=== PATIENT | female | born 1990 | race Caucasian/White ===

== ENCOUNTER 2016-11-23 22:14 | Observation (INO) | payer OTHER ==
[2016-11-24] MEDS ORDERED: Terbutaline 1 MG/ML SDV SUBCUT ONE (00:11)
[2016-11-24] MEDS ORDERED: Terbutaline 1 MG/ML SDV ONE (00:13)
== END 2016-11-24 02:40 | disposition home or self-care (01) ==
LOC: MW.OBCHECK 22:14 → MW.OB 22:20 → MW.OBCHECK 22:41 → MW.OB 22:41
PROVIDERS: ADMIT Obstetrics & Gynecology; ATTEND Obstetrics & Gynecology
DX: Z34.93 Encounter for supervision of normal pregnancy, unspecified, third trimester (principal)
CPT/HCPCS: 59025; 81003; 87081; 96372; G0378; J3105

== ENCOUNTER 2016-12-23 03:53 | Inpatient (IN) | payer OTHER ==
[2016-12-23] MEDS ORDERED: Misoprostol 200 MCG Tab PO PRN (04:30)
[2016-12-23] MEDS ORDERED: Nalbuphine 10 MG/1 ML Vial IVPUSH PRN (04:30)
[2016-12-23] MEDS ORDERED: Sodium Chloride 0.9% 2.5 ML Syringe FLUSH PRN (04:30)
[2016-12-23] MEDS ORDERED: Carboprost Tromethamine 250 MCG/1 ML Amp IM PRN (04:30)
[2016-12-23] MEDS ORDERED: Methylergonovine 0.2 MG/1 ML Amp IM PRN (04:30)
[2016-12-23] MEDS ORDERED: Lactated Ringers 1,000 ML IV SCH (04:30)
[2016-12-23] MEDS ORDERED: Lidocaine 1% 50 ML MDV INJECT PRN (04:30)
[2016-12-23] MEDS ORDERED: Oxytocin/Lactated Ringers 30 UNIT/500 ML BAG IV SCH ×2 (04:30→16:00)
[2016-12-23] MEDS ORDERED: Water For Irrigation,Sterile 1,000 ML Container IRR PRN (04:30)
[2016-12-23] MEDS ORDERED: Sodium Chloride 0.9% 10 ML Syringe FLUSH PRN (04:30)
[2016-12-23] MEDS ORDERED: Butorphanol 1 MG/ML SDV IVPUSH PRN (04:30)
[2016-12-23] MEDS ORDERED: Oxytocin/Lactated Ringers 30 UNIT/500 ML BAG ONE (15:45)
[2016-12-23] MEDS ORDERED: Bisacodyl 10 MG Supp RECTAL PRN (17:53)
[2016-12-23] MEDS ORDERED: Simethicone 80 MG Tab.Chew PO PRN (17:53)
[2016-12-23] MEDS ORDERED: Witch Hazel Medicated Pads 40/Jar TOP PRN (17:53)
[2016-12-23] MEDS ORDERED: Ibuprofen 400 MG Tab PO PRN (17:53)
[2016-12-23] MEDS ORDERED: Docusate Sodium 100 MG Cap PO PRN (17:53)
[2016-12-23] MEDS ORDERED: Acetaminophen 500 MG Tab PO PRN ×2 (17:53)
[2016-12-23] MEDS ORDERED: oxyCODONE 5 MG Tab PO PRN (17:53)
[2016-12-23] MEDS ORDERED: Aluminum Hydroxide/Magnesium Hydroxide/Simethicone Susp 30 ML Cup PO PRN (17:53)
[2016-12-23] MEDS ORDERED: Lanolin 100% Cream 7 GM Tube TOP PRN (17:53)
[2016-12-23] MEDS ORDERED: Benzocaine/Menthol 20%-0.5% Spray 78 GM Cannister TOP PRN (17:53)
[2016-12-23] MEDS: Ibuprofen 800 MG Tab PO PRN (18:07)
[2016-12-24] MEDS: Ibuprofen 800 MG Tab PO PRN ×3 (00:21→16:05)
--- NOTE | 2016-12-24 01:18 | OR ---
SURGEON: Falguni Martins M.D. DATE OF PROCEDURE: 12/23/2016 PREOPERATIVE DIAGNOSES: 1. A 39 and 2-week intrauterine . 2. Active labor. POSTOPERATIVE DIAGNOSES: 1. A 39 and 2-week intrauterine . 2. Active labor. PROCEDURE: Spontaneous vaginal delivery, first-degree midline laceration repaired. ANESTHESIA: Local. ESTIMATED BLOOD LOSS: 300 mL. FINDINGS: Viable male, Apgars 8 at 1 minute and 9 at 5 minutes. Weight 8 pounds 5 ounces. Spontaneous delivery, intact placenta, 3-vessel cord. DISPOSITION: nursery, mom in LDRP, stable. PROCEDURE IN DETAIL: Aneta is a 26-year-old, G2, P1, at 39 and 2 weeks gestational age, who presented on the morning of 12/23/2016, with regular contractions every 6-7 minutes. Cervical dilation of 7, 90% effaced, +1 station. heart tones 130s category 1. With observation, the patient made minimal cervical exchange floor manager the next number of hours. However, she declined any attempts at amniotomy or augmentation. She continued to ambulate, use birthing ball, but still after 3:00 p.m. was found to be 7 cm, 90% effaced, 0 station. heart tones 130s. After many lengthy discussions about options, the patient was also offered to be able to go home as her contractions are now 7-10 minutes apart. Her vital signs are stable. heart tones are 130s, category 1. We recommended that she stay directly in town close to the hospital, but this is an option for her. After consideration, the patient would like to proceed with amniotomy, underwent this successfully. Clear fluid was returned. The patient began austyn much more consistently and frequently thereafter, and began changing her cervix once again. Approximately at 5:30 p.m., she was found to be complete, 100% effaced, at +1 station. Was placed in modified dorsal lithotomy position and prepped draped in the usual aseptic manner. Began pushing efforts, was able to push readily to a +4 station. 's head was delivered while controlling the perineum followed by delivery of anterior shoulder, posterior shoulder, and remainder of the body without difficulty. The 's oropharynx and nares bulb suctioned. Cord was clamped x3. Infant was handed off to his mother with attending nursing staff at her side. Cord arterial, cord venous, cord blood sampling was obtained. Light suprapubic pressure was applied while the placenta was delivered spontaneously intact. Vigorous fundal uterine massage was then applied with 30 units of Pitocin was delivered in 500 mL IV fluid. Upon inspection of cervix outside of the vaginal sidewalls and perineum, there was found to be a first-degree midline laceration. This region was prepped with approximately 10 mL of 1% lidocaine and repaired with 3-0 Caprosyn in the usual fashion. Hemostasis appeared evident. Uterus remained firm. Sponge count and needle counts were correct. The patient remained in LDRP. in nursery thank. EJ / GIANNI /[id number] MTDD
--- NOTE | 2016-12-24 11:05 | PCM.PNPP ---
- General Info Date of Service: 12/24/16 Functional Status: Reports: pain controlled, tolerating diet, ambulating, urinating - Review of Systems General: Denies: Fever, Weakness Pulmonary: Denies: shortness of breath Cardiovascular: Denies: Chest Pain, Palpitations, Lightheadedness Gastrointestinal: Denies: Nausea, Vomiting Genitourinary: Denies: flank pain Psychiatric: Reports: no symptoms - General Info Date of Service: 12/24/16 - Patient Data Vital Signs - most recent: Last Vital Signs Temp 36.4 C 12/24/16 10:11 Pulse 83 12/24/16 10:11 Resp 15 12/24/16 10:11 BP 113/62 12/24/16 10:11 Pulse Ox 97 12/24/16 08:00 Weight - most recent: 76.204 kg I&O - last 24 hours: Intake & Output 12/23/16 12/24/16 12/24/16 22:59 06:59 14:59 Intake Total 2 Balance 2 Lab Results - last 24 hrs: Laboratory Results - last 24 hr 12/23/16 12/24/16 Range/Units 18:47 05:50 Hgb 12.3 (12.0-16.0) g/dL Hct 36.2 (36.0-46.0) % Screen NEGATIVE RhIG Candidate? YES Rhogam Indicated YES, BABY RH POS H Med Orders - Current: Current Medications Acetaminophen (Tylenol Extra Strength) 500 mg PO Q4H PRN PRN Reason: Pain Acetaminophen (Tylenol Extra Strength) 1,000 mg PO Q4H PRN PRN Reason: Pain Last Admin: 12/24/16 03:28 Dose: 1,000 mg Al Hydroxide/Mg Hydroxide (Mag-Al Plus) 30 ml PO Q8H PRN PRN Reason: Heartburn Benzocaine/Menthol (Dermoplast Pain Relief 20%-0.5% Warba) 78 gm TOP ASDIRECTED PRN PRN Reason: Perineal Comfort Measure Last Admin: 12/23/16 18:00 Dose: 1 spray Bisacodyl (Dulcolax) 10 mg RECTAL .ONCE PRN PRN Reason: Constipation Carboprost Tromethamine (Hemabate Ds) 250 mcg IM ASDIRECTED PRN PRN Reason: Post Hemorrhage Docusate Sodium (Colace) 100 mg PO BID PRN PRN Reason: Constipation Emollient Ointment (Lansinoh Hpa) 0 gm TOP ASDIRECTED PRN PRN Reason: Sore Nipples Lactated Ringer's (Ringers, Lactated) 1,000 mls @ 150 mls/hr IV ASDIRECTED GUILHERME Oxytocin/Lactated Ringer's (Pitocin In Lr 30 Units/500 Ml) 30 unit in 500 mls @ 999 mls/hr IV TITRATE GUILHERME Last Admin: 12/23/16 18:32 Dose: 999 mls/hr Ibuprofen (Motrin) 400 mg PO Q4H PRN PRN Reason: Pain Ibuprofen (Motrin) 800 mg PO Q6H PRN PRN Reason: Pain Last Admin: 12/24/16 09:24 Dose: 800 mg Methylergonovine Maleate (Methergine) 0.2 mg IM ASDIRECTED PRN PRN Reason: Post Hemorrhage Oxycodone HCl (Oxycodone) 5 mg PO Q2H PRN PRN Reason: Pain Simethicone (Simethicone) 80 mg PO Q4H PRN PRN Reason: Gas Sodium Chloride (Saline Flush) 2.5 ml FLUSH ASDIRECTED PRN PRN Reason: Keep Vein Open Witch [place] (Tucks) 1 pad TOP ASDIRECTED PRN PRN Reason: comfort care Last Admin: 12/23/16 18:00 Dose: 1 carton Discontinued Medications Butorphanol Tartrate (Stadol) 1 mg IVPUSH Q1H PRN PRN Reason: Pain Oxytocin/Lactated Ringer's (Pitocin In Lr 30 Units/500 Ml) 30 unit in 500 mls @ 999 mls/hr IV TITRATE GUILHERME PRN Reason: 999 MUNITS/MIN Stop: 12/23/16 05:01 Last Admin: 12/23/16 17:29 Dose: 999 munits/min, 999 mls/hr Oxytocin/Lactated Ringer's (Pitocin In Lr 30 Units/500 Ml) Confirm Administered Dose 30 unit in 500 mls @ as directed .ROUTE .[facility] Stop: 12/23/16 15:46 Lidocaine HCl (Xylocaine 1%) 50 ml INJECT .ONCE PRN PRN Reason: Laceration repair Last Admin: 12/23/16 17:35 Dose: 50 ml Misoprostol (Cytotec) 200 mcg PO .ONCE PRN PRN Reason: Post Hemorrhage Nalbuphine HCl (Nubain) 10 mg IVPUSH Q1H PRN PRN Reason: Pain (severe 7-10) Stop: 12/23/16 06:31 Sodium Chloride (Saline Flush) 10 ml FLUSH ASDIRECTED PRN PRN Reason: Keep Vein Open Sterile Water (Sterile Water For Irrigation) 1,000 ml IRR ASDIRECTED PRN PRN Reason: delivery Last Admin: 12/23/16 17:37 Dose: 1,000 ml - Infant Interaction Support Person: , Mother - Recovery Exam Fundal Tone: Firm Fundal Level: 1 Fingerbreadths Below Umbilicus Fundal Placement: Midline Lochia Amount: Scant Lochia Color: Rubra/Red Perineum Description: Intact, Minimal Bruising/Swelling Episiotomy/Laceration: Approximated Bladder Status: Voiding Urinary Elimination: Voided - Exam General: alert, oriented Lungs: Normal respiratory effort Cardiovascular: Regular Rate, Regular Rhythm Abdomen: bowel sounds present, soft. No: CVA tenderness Extremities: no calf tenderness Skin: warm, dry, intact Psy/Mental Status: alert, normal affect - Problem List & Annotations (1) Vaginal delivery SNOMED Code(s): 564414732 Code(s): O80 - ENCOUNTER FOR FULL-TERM UNCOMPLICATED DELIVERY Status: Acute Current Visit: No - Problem List Review Problem List Initiated/Reviewed/Updated: Yes - My Orders Last 24 Hours: My Active Orders 12/23/16 16:00 Oxytocin/Lactated Ringers [Pitocin in LR 30 Units/500 ML] 30 unit in 500 ml IV TITRATE 12/23/16 17:53 Patient Status [ADT] Routine May Shower [RC] ASDIRECTED Up ad Yolette [RC] ASDIRECTED Vital Signs [RC] PER UNIT ROUTINE Acetaminophen [Tylenol Extra Strength] 1,000 mg PO Q4H PRN Acetaminophen [Tylenol Extra Strength] 500 mg PO Q4H PRN Alum Hydrox/Mag Hydrox/Simeth [Mag-Al Plus] 30 ml PO Q8H PRN Benzocaine/Menthol [Dermoplast Pain Relief 20%-0.5% Warba] 78 gm TOP ASDIRECTED PRN Bisacodyl [Dulcolax] 10 mg RECTAL .ONCE PRN Docusate Sodium [Colace] 100 mg PO BID PRN Ibuprofen [Motrin] 400 mg PO Q4H PRN Ibuprofen [Motrin] 800 mg PO Q6H PRN Lanolin [Lansinoh HPA] See Dose Instructions TOP ASDIRECTED PRN Simethicone 80 mg PO Q4H PRN Witch [place] [Tucks] 1 pad TOP ASDIRECTED PRN oxyCODONE 5 mg PO Q2H PRN Assess Lochia [WOMSER] Per Unit Routine Assess Uterine Involution [WOMSER] Per Unit Routine Ice Therapy [OM.PC] Per Unit Routine Perineal Care [OM.PC] Per Unit Routine Peripheral IV Discontinue [OM.PC] Routine Sitz Bath [OM.PC] Per Unit Routine 12/23/16 Dinner Regular Diet [DIET] 12/24/16 11:03 Ready for Discharge [RC] PER UNIT ROUTINE - Assessment Assessment:: PPD 1 status post - Plan Plan:: Patient would like to go home later today. Discharge instructions reviewed. [facility]. Infection and bleeding warnings reviewed.
[2016-12-24 17:33] VITALS: BP 114/76
== END 2016-12-24 19:15 | disposition home or self-care (01) | DRG 775 ==
LOC: MW.OBCHECK 03:53 → MW.OB 03:55 → MW.OBCHECK 04:31 → OBSVTOIN 17:25
PROVIDERS: ADMIT Obstetrics & Gynecology; ATTEND Obstetrics & Gynecology
PROC: 10E0XZZ Delivery of Products of Conception, External Approach (ICD-10-PCS; principal; 2016-12-23)
PROC: 0HQ9XZZ Repair Perineum Skin, External Approach (ICD-10-PCS; 2016-12-23)
PROC: 10907ZC Drainage of Amniotic Fluid, Therapeutic from Products of Conception, Via Natural or Artificial Opening (ICD-10-PCS; 2016-12-23)
DX: O70.0 First degree perineal laceration during delivery (principal); Z3A.39 39 weeks gestation of pregnancy; Z37.0 Single live birth
CPT/HCPCS: 36415; 59025; 85014; 85018; 85027; 85460; 86850; 86900; 86901; A9270-GY; J2790

== ENCOUNTER 2018-02-10 10:59 | Emergency (ER) | payer OTHER ==
[2018-02-10] MEDS ORDERED: Bupivacaine 0.5% 10 ML SDV INJECT ONE (11:07)
[2018-02-10] MEDS ORDERED: Bupivacaine 0.5% 10 ML SDV ONE (11:07)
--- NOTE | 2018-02-10 11:19 | EDM.PDOC ---
ED HPI GENERAL MEDICAL PROBLEM - General Chief Complaint: Laceration Stated Complaint: RIGHT RING FINGER PAIN Time Seen by Provider: 02/10/18 11:05 Source of Information: Reports: Patient History Limitations: Reports: No Limitations - History of Present Illness INITIAL COMMENTS - FREE TEXT/NARRATIVE: History of present illness: []Patient was cutting cucumbers prior to arrival and cut off the tip of her right index finger. Patient has never had a tetanus shot and declines one here. Review of systems: As per history of present illness and below otherwise all systems reviewed and negative. Past medical history: As per history of present illness and as reviewed below otherwise noncontributory. Surgical history: As per history of present illness and as reviewed below otherwise noncontributory. Social history: No reported history of drug or alcohol abuse. Family history: As per history of present illness and as reviewed below otherwise noncontributory. Physical exam: General: Well developed, well nourished in NAD HEENT: Atraumatic, normocephalic, pupils reactive, negative for conjunctival pallor or scleral icterus, mucous membranes moist, throat clear, neck supple, nontender, trachea midline. Lungs: Clear to auscultation, breath sounds equal bilaterally, chest nontender. Heart: S1S2, regular, negative for clicks, rubs, or JVD. Abdomen: Soft, nondistended, nontender. Negative for masses or hepatosplenomegaly. Negative for costovertebral tenderness. Pelvis: Stable nontender. Genitourinary: Deferred. Rectal: Deferred. Extremities: Right index fingertip avulsed approximately 3 millimeters, negative for cords or calf pain. Neurovascular unremarkable. Neuro: Awake, alert, oriented. Cranial nerves II through XII unremarkable. Cerebellum unremarkable. Motor and sensory unremarkable throughout. Exam nonfocal. Diagnostics: []X-ray right index finger no fracture Therapeutics: []Digital block, Surgicel and bulky dressing placed Impression: []Right index finger tip avulsion Plan: []Follow-up with Dr. Wei tramnathan for pain, patient declined prescription pain medicines, ibuprofen 800 every 6 hours as needed for pain ice and elevation Definitive disposition and diagnosis as appropriate pending reevaluation and review of above. Right index finger Pain Score (Numeric/FACES): 0 - Related Data Allergies Allergy/AdvReac Type Severity Reaction Status Date / Time No Known Allergies Allergy Verified 02/10/18 11:10 Home Meds: Home Meds . [No Known Home Meds] 02/10/18 [History] Past Medical History - Past Health History Medical/Surgical History: Denies Medical/Surgical History COOK STATION History: Reports: ED ROS GENERAL - Review of Systems Review Of Systems: ROS reveals no pertinent complaints other than HPI. ED EXAM, SKIN/RASH Exam: See Below (See history of present illness) Course - Orders/Labs/Meds Orders: Active Orders 24 hr Category Date Time Status Fingers Second Digit Rt F6 [CR] Stat Exams 02/10/18 11:14 Taken Meds: Medications Discontinued Medications Generic Name Dose Route Start Last Admin Trade Name Freq PRN Reason Stop Dose Admin Bupivacaine HCl 10 ml 02/10/18 11:07 02/10/18 11:26 Sensorcaine-Mpf 0.5% INJECT 02/10/18 11:08 10 ml ONETIME ONE Administration Bupivacaine HCl Confirm 02/10/18 11:07 02/10/18 11:13 Sensorcaine-Mpf 0.5% Administered 02/10/18 11:08 Not Given Dose 10 ml .ROUTE .STK-MED ONE Lidocaine HCl Confirm 02/10/18 11:07 02/10/18 11:13 Xylocaine-Mpf 1% Administered 02/10/18 11:08 Not Given Dose 5 mls @ as directed .ROUTE .STK-MED ONE Lidocaine HCl 5 ml 02/10/18 11:06 02/10/18 11:26 Xylocaine-Mpf 1% INJECT 02/10/18 11:07 5 ml ONETIME ONE Administration Departure - Departure Time of Disposition: 11:46 Disposition: Home, Self-Care 01 Condition: Good Clinical Impression: Fingertip avulsion Qualifiers: Encounter type: initial encounter Qualified Code(s): S61.209A - Unspecified open wound of unspecified finger without damage to nail, initial encounter - Discharge Information *PRESCRIPTION DRUG MONITORING PROGRAM REVIEWED*: No Referrals: Tasia Wei MD [Physician] - (Next available) Forms: ED Department Discharge Additional Instructions: The following information is given to patients seen in the emergency department who are being discharged to home. This information is to outline your options for follow-up care. We provide all patients seen in our emergency department with a follow-up referral. The need for follow-up, as well as the timing and circumstances, are variable depending upon the specifics of your emergency department visit. If you don't have a primary care physician on staff, we will provide you with a referral. We always advise you to contact your personal physician following an emergency department visit to inform them of the circumstance of the visit and for follow-up with them and/or the need for any referrals to a consulting specialist. The emergency department will also refer you to a specialist when appropriate. This referral assures that you have the opportunity for follow-up care with a specialist. All of these measure are taken in an effort to provide you with optimal care, which includes your follow-up. Under all circumstances we always encourage you to contact your private physician who remains a resource for coordinating your care. When calling for follow-up care, please make the office aware that this follow-up is from your recent emergency room visit. If for any reason you are refused follow-up, please contact the [facility] Department at and asked to speak to the emergency department charge nurse. Ibuprofen 800 every 6 hours as needed for pain Follow-up with Dr. Wei call for next available appointment [facility] Professional Building [address] [place] [address], [address] [place] [address] - My Orders Last 24 Hours: My Active Orders 02/10/18 11:14 Fingers Second Digit Rt F6 [CR] Stat - Assessment/Plan Last 24 Hours: My Active Orders 02/10/18 11:14 Fingers Second Digit Rt F6 [CR] Stat
[2018-02-10 12:10] VITALS: BP 109/67
--- NOTE | 2018-02-12 09:57 | CR ---
EXAM DATE: 02/10/18 PATIENT'S AGE: 27 Patient: ZOË ANDERSON Facility: [place], [place] Site . Site : 1990 Study: XRay Extremity Right 2nd digit [id number]/4/2018 11:37:49 AM Ordering Physician: Jassi Barfield Final Report: INDICATION: Right index finger pain and injury. TECHNIQUE: Three view. FINDINGS: There is a large soft tissue defect and bandage in place along the distal aspect of the right index finger. No acute fracture is seen of the right index finger. IMPRESSION: Soft tissue defect and bandage in place. No fracture is seen of the right index finger. Dictated by Josh Min MD @ 02/10/2018 11:43:25 AM Dictated by: Josh Min MD @ 02/10/2018 11:43:32 (Electronic Signature) Report Signed by Proxy. DEYANIRA
== END 2018-02-10 12:05 | disposition home or self-care (01) ==
LOC: MW.ED 10:59
DX: S61.200A Unspecified open wound of right index finger without damage to nail, initial encounter (principal); W26.0XXA Contact with knife, initial encounter
CPT/HCPCS: 64450; 73140; 99283; J3490

== ENCOUNTER 2018-11-24 11:57 | Emergency (ER) | payer OTHER ==
--- NOTE | 2018-11-24 12:02 | EDM.PDOC ---
ED HPI GENERAL MEDICAL PROBLEM - General Chief Complaint: SALAD CHEF Problem Stated Complaint: AN BLEEDING Time Seen by Provider: 11/24/18 12:02 Source of Information: Reports: Patient - History of Present Illness INITIAL COMMENTS - FREE TEXT/NARRATIVE: HISTORY AND PHYSICAL: History of present illness: [Patient presents at 9 weeks with IUP under OB care with Dr. Martins, she has some bleeding in she has went through 1-2 tampons today this is not uncommon for her during She has 2 previous pregnancies that went to term however she did have bleeding with them as well, I've suggested urged her not to use tampons recommended nothing per vagina at this time ] Review of systems: As per history of present illness and below otherwise all systems reviewed and negative. Past medical history: As per history of present illness and as reviewed below otherwise noncontributory. Surgical history: As per history of present illness and as reviewed below otherwise noncontributory. Social history: No reported history of drug or alcohol abuse. Family history: As per history of present illness and as reviewed below otherwise noncontributory. Physical exam: HEENT: Atraumatic, normocephalic, pupils reactive, negative for conjunctival pallor or scleral icterus, mucous membranes moist, throat clear, neck supple, nontender, trachea midline. Lungs: Clear to auscultation, breath sounds equal bilaterally, chest nontender. Heart: S1S2, regular, negative for clicks, rubs, or JVD. Abdomen: Soft, nondistended, nontender. Negative for masses or hepatosplenomegaly. Negative for costovertebral tenderness. Pelvis: Stable nontender. Genitourinary: Deferred. Rectal: Deferred. Extremities: Atraumatic, negative for cords or calf pain. Neurovascular unremarkable. Neuro: Awake, alert, oriented. Cranial nerves II through XII unremarkable. Cerebellum unremarkable. Motor and sensory unremarkable throughout. Exam nonfocal. Diagnostics: [CBC CMP UA hCG ABO type ] Therapeutics: RhoGAM] Impression: Threatened [IUP B- heart rate 180s Cervix closed EDC 06/30/19 ] Definitive disposition and diagnosis as appropriate pending reevaluation and review of above. - Related Data Allergies Allergy/AdvReac Type Severity Reaction Status Date / Time No Known Allergies Allergy Verified 02/10/18 11:10 Home Meds: Home Meds . [No Known Home Meds] 02/10/18 [History] Past Medical History - Past Health History Medical/Surgical History: Denies Medical/Surgical History HEENT History: Reports: None Cardiovascular History: Reports: None Respiratory History: Reports: None Gastrointestinal History: Reports: None Genitourinary History: Reports: None SALAD CHEF History: Reports: Musculoskeletal History: Reports: None Neurological History: Reports: None Psychiatric History: Reports: None Endocrine/Metabolic History: Reports: None Hematologic History: Reports: None Immunologic History: Reports: None Oncologic (Cancer) History: Reports: None Dermatologic History: Reports: None - Infectious Disease History Infectious Disease History: Reports: None - Past Surgical History Head Surgeries/Procedures: Reports: None HEENT Surgical History: Reports: None Cardiovascular Surgical History: Reports: None Respiratory Surgical History: Reports: None GI Surgical History: Reports: None Female Surgical History: Reports: None Endocrine Surgical History: Reports: None Neurological Surgical History: Reports: None Musculoskeletal Surgical History: Reports: None Oncologic Surgical History: Reports: None Dermatological Surgical History: Reports: None Social & Family History - Family History Family Medical History: Noncontributory - Caffeine Use Caffeine Use: Reports: Coffee ED ROS GENERAL - Review of Systems Review Of Systems: See Below ED EXAM, GENERAL - Physical Exam Exam: See Below Course - Vital Signs Last Recorded V/S: Last Vital Signs Temp 99.6 F 11/24/18 12:27 Pulse 71 11/24/18 12:27 Resp 16 11/24/18 12:27 BP 114/73 11/24/18 12:27 Pulse Ox 99 11/24/18 12:27 - Orders/Labs/Meds Labs: Laboratory Tests 11/24/18 11/24/18 11/24/18 Range/Units 12:15 12:15 12:15 WBC 9.61 (4.0-11.0) K/uL RBC 4.65 (4.30-5.90) M/uL Hgb 14.1 (12.0-16.0) g/dL Hct 41.2 (36.0-46.0) % MCV 88.6 (80.0-98.0) fL MCH 30.3 (27.0-32.0) pg MCHC 34.2 (31.0-37.0) g/dL RDW Std Deviation 40.8 (28.0-62.0) fl RDW Coeff of Nurys 13 (11.0-15.0) % Plt Count 219 (150-400) K/uL MPV 10.60 (7.40-12.00) fL Neut % (Auto) 76.0 (48.0-80.0) % Lymph % (Auto) 16.2 (16.0-40.0) % Morrison % (Auto) 7.3 (0.0-15.0) % Eos % (Auto) 0.2 (0.0-7.0) % Baso % (Auto) 0.3 (0.0-1.5) % Neut # (Auto) 7.3 H (1.4-5.7) K/uL Lymph # (Auto) 1.6 (0.6-2.4) K/uL Morrison # (Auto) 0.7 (0.0-0.8) K/uL Eos # (Auto) 0.0 (0.0-0.7) K/uL Baso # (Auto) 0.0 (0.0-0.1) K/uL Nucleated RBC % 0.0 /100WBC Nucleated RBCs # 0 K/uL Sodium 138 (136-145) mmol/L Potassium 4.0 (3.5-5.1) mmol/L Chloride 100 (98-107) mmol/L Carbon Dioxide 28.4 (21.0-32.0) mmol/L BUN 8 (7.0-18.0) mg/dL Creatinine 0.7 (0.6-1.0) mg/dL Est Cr Clr Drug Dosing 95.48 mL/min Estimated GFR (MDRD) > 60.0 ml/min Glucose 130 H (74-106) mg/dL Calcium 9.6 (8.5-10.1) mg/dL Total Bilirubin 0.5 (0.2-1.0) mg/dL AST 16 (15-37) IU/L ALT 26 (14-63) IU/L Alkaline Phosphatase 53 (46-116) U/L Total Protein 7.9 (6.4-8.2) g/dL Albumin 4.1 (3.4-5.0) g/dL Globulin 3.8 (2.6-4.0) g/dL Albumin/Globulin Ratio 1.1 (0.9-1.6) HCG, Quant 01664.0 mIU/mL Urine Color Urine Appearance Urine pH (5.0-8.0) Ur Specific Fleischmanns (1.001-1.035) Urine Protein (NEGATIVE) mg/dL Urine Glucose (UA) (NEGATIVE) mg/dL Urine Ketones (NEGATIVE) mg/dL Urine Occult Blood (NEGATIVE) Urine Nitrite (NEGATIVE) Urine Bilirubin (NEGATIVE) Urine Urobilinogen (<2.0) EU/dL Ur Leukocyte Esterase (NEGATIVE) Urine RBC (0-2/HPF) Urine WBC (0-5/HPF) Ur Epithelial Cells (NONE-FEW) Urine Bacteria (NEGATIVE) Blood Type B NEGATIVE Antibody Screen Rhogam Indicated 11/24/18 11/24/18 Range/Units 12:15 12:20 WBC (4.0-11.0) K/uL RBC (4.30-5.90) M/uL Hgb (12.0-16.0) g/dL Hct (36.0-46.0) % MCV (80.0-98.0) fL MCH (27.0-32.0) pg MCHC (31.0-37.0) g/dL RDW Std Deviation (28.0-62.0) fl RDW Coeff of Nurys (11.0-15.0) % Plt Count (150-400) K/uL MPV (7.40-12.00) fL Neut % (Auto) (48.0-80.0) % Lymph % (Auto) (16.0-40.0) % Morrison % (Auto) (0.0-15.0) % Eos % (Auto) (0.0-7.0) % Baso % (Auto) (0.0-1.5) % Neut # (Auto) (1.4-5.7) K/uL Lymph # (Auto) (0.6-2.4) K/uL Morrison # (Auto) (0.0-0.8) K/uL Eos # (Auto) (0.0-0.7) K/uL Baso # (Auto) (0.0-0.1) K/uL Nucleated RBC % /100WBC Nucleated RBCs # K/uL Sodium (136-145) mmol/L Potassium (3.5-5.1) mmol/L Chloride (98-107) mmol/L Carbon Dioxide (21.0-32.0) mmol/L BUN (7.0-18.0) mg/dL Creatinine (0.6-1.0) mg/dL Est Cr Clr Drug Dosing mL/min Estimated GFR (MDRD) ml/min Glucose (74-106) mg/dL Calcium (8.5-10.1) mg/dL Total Bilirubin (0.2-1.0) mg/dL AST (15-37) IU/L ALT (14-63) IU/L Alkaline Phosphatase (46-116) U/L Total Protein (6.4-8.2) g/dL Albumin (3.4-5.0) g/dL Globulin (2.6-4.0) g/dL Albumin/Globulin Ratio (0.9-1.6) HCG, Quant mIU/mL Urine Color YELLOW Urine Appearance CLEAR Urine pH 6.5 (5.0-8.0) Ur Specific Fleischmanns 1.015 (1.001-1.035) Urine Protein NEGATIVE (NEGATIVE) mg/dL Urine Glucose (UA) NEGATIVE (NEGATIVE) mg/dL Urine Ketones NEGATIVE (NEGATIVE) mg/dL Urine Occult Blood TRACE-INTACT H (NEGATIVE) Urine Nitrite NEGATIVE (NEGATIVE) Urine Bilirubin NEGATIVE (NEGATIVE) Urine Urobilinogen 0.2 (<2.0) EU/dL Ur Leukocyte Esterase NEGATIVE (NEGATIVE) Urine RBC 0-1 (0-2/HPF) Urine WBC 0-1 (0-5/HPF) Ur Epithelial Cells FEW (NONE-FEW) Urine Bacteria FEW (NEGATIVE) Blood Type Cancelled Antibody Screen NEGATIVE Rhogam Indicated Cancelled Departure - Departure Time of Disposition: 14:47 Disposition: Home, Self-Care 01 Condition: Good Clinical Impression: Threatened - Discharge Information Referrals: PCP,None [Primary Care Provider] - Forms: ED Department Discharge Additional Instructions: Nothing per vagina, no douching tampons sexual intercourse Follow-up with OB as scheduleSooner as needed Follow-up with primary care as needed Return to emergency room if symptoms persist or worsen or if new concerning symptoms develop [facility] [address] [place] [id number] The following information is given to patients seen in the emergency department who are being discharged to home. This information is to outline your options for follow-up care. We provide all patients seen in our emergency department with a follow-up referral. The need for follow-up, as well as the timing and circumstances, are variable depending upon the specifics of your emergency department visit. If you don't have a primary care physician on staff, we will provide you with a referral. We always advise you to contact your personal physician following an emergency department visit to inform them of the circumstance of the visit and for follow-up with them and/or the need for any referrals to a consulting specialist. The emergency department will also refer you to a specialist when appropriate. This referral assures that you have the opportunity for follow-up care with a specialist. All of these measure are taken in an effort to provide you with optimal care, which includes your follow-up. Under all circumstances we always encourage you to contact your private physician who remains a resource for coordinating your care. When calling for follow-up care, please make the office aware that this follow-up is from your recent emergency room visit. If for any reason you are refused follow-up, please contact the [facility] emergency department at and asked to speak to the emergency department charge nurse.
[2018-11-24 13:07] LABS: CHLORIDE,CL 100 mmol/L (98-107); SODIUM,NA 138 mmol/L (136-145)
--- NOTE | 2018-11-24 14:32 | US ---
INDICATION: First trimester bleeding. COMPARISON: None. TECHNIQUE: 2D roa-scale imaging of the pelvis was performed. FINDINGS: Sonographic imaging demonstrates a single living intrauterine gestation hand within a retroverted uterus. The embryo demonstrates a regular cardiac rate measuring 181 beats per minute. The embryo`s crown-rump length measurement of 2.4 cm corresponds to a gestational age of 9 weeks 1 day with a sonographic due date of 06/30/2019. There is a normal-appearing yolk sac. There are no gross abnormalities noted within the embryo at this early state of development. The placenta has not yet developed. There is a.m. hematoma line within the proximal endometrial cavity inferior to the gestational sac. There is absence of blood flow within this complex hematoma on color-flow imaging. Hematoma measures approximately 4.5 x 3.6 x 3.2 cm. The cervix is closed. The myometrium appears normal. The ovaries are of normal size. There are no suspicious fluid collections noted in the cul-de-sac. IMPRESSION: Large inferior marginal hemorrhage identified. Gestational age calculated at 9 weeks 1 day with a sonographic due date of 06/30/2019. Dictated by Davey Rodrigues MD @ Nov 24 2018 2:29PM Signed by Dr. Davey Rodrigues @ Nov 24 2018 2:29PM
[2018-11-24 15:00] VITALS: BP 107/72
== END 2018-11-24 14:54 | disposition home or self-care (01) ==
LOC: MW.ED 11:57
DX: O20.0 Threatened abortion (principal)
CPT/HCPCS: 36415; 76815; 80053; 81001; 84702; 85025; 86850; 86900; 86901; 99284; J2792; 99283

== ENCOUNTER 2021-09-16 08:52 | Emergency (ER) | payer OTHER ==
[2021-09-16] MEDS ORDERED: Cyclobenzaprine 10 MG Tab PO ONE (09:13)
[2021-09-16] MEDS ORDERED: Acetaminophen/oxyCODONE 325-5 MG Tab PO ONE (09:13)
[2021-09-16] MEDS ORDERED: Ibuprofen 600 MG Tab PO ONE (09:13)
[2021-09-16] MEDS ORDERED: Dexamethasone 10 MG/ML SDV IM STA (09:13)
[2021-09-16] MEDS ORDERED: Acetaminophen/HYDROcodone 325-5 MG Tab PO ONE (09:15)
[2021-09-16 10:49] VITALS: BP 99/60; PULSE 58
== END 2021-09-16 11:20 | disposition home or self-care (01) ==
LOC: MW.ED 08:52
DX: M54.41 Lumbago with sciatica, right side (principal)
CPT/HCPCS: 70450; 81025; 82947; 93005; 96372; 99284; A9270; J1100; 93010

== ENCOUNTER 2021-10-01 16:05 | Emergency (ER) | payer OTHER ==
[2021-10-01] MEDS ORDERED: Acetaminophen/oxyCODONE 325-10 MG Tab PO STA (16:31)
[2021-10-01] MEDS ORDERED: Cyclobenzaprine 10 MG Tab PO STA (16:31)
[2021-10-01 17:13] LABS: BLOOD UREA NITROGEN,BUN 16 mg/dL (7.0-18.0); CARBON DIOXIDE,CO2 27.7 mmol/L (21.0-32.0); CHLORIDE,CL 103 mmol/L (98-107); GLUCOSE RANDOM 86 mg/dL (74-106); POTASSIUM,K 3.8 mmol/L (3.5-5.1); SODIUM,NA 140 mmol/L (136-145)
[2021-10-01] MEDS ORDERED: Iopamidol 755 MG/ML 500 ML Multipack Bottle IVPUSH ONE (18:46)
[2021-10-01] MEDS ORDERED: Ondansetron 4 MG/2 ML SDV IVPUSH ONE (19:50)
[2021-10-01 21:18] VITALS: BP 110/80; PULSE 72
== END 2021-10-01 21:16 | disposition home or self-care (01) ==
LOC: MW.ED 16:25
DX: I73.9 Peripheral vascular disease, unspecified (principal); M54.10 Radiculopathy, site unspecified
CPT/HCPCS: 36415; 73706; 80048; 85025; 93971; 96374; 99284; A9270; J2405; Q9967